=== PATIENT | male | born 1980 | race Caucasian/White ===

== ENCOUNTER 2016-10-29 17:39 | Emergency (ER) | payer SELFPAY ==
[~2016-10-29] VITALS: Ht 172.7 cm; Wt 82.0 kg
[2016-10-29] MEDS ORDERED: SOD CHLORIDE 0.9% 1,000 ML IV STA (17:57)
[2016-10-29 18:11] VITALS: Ht 172.7 cm; Wt 82.0 kg
[2016-10-29 18:16] LABS: ADD SCAN DIFF NO; BASOPHIL # 0.1 10^3/ul (0.0-0.1); BASOPHILS % 0.5 % (0.0-2.0); EOSINOPHILS # 0.2 10^3/ul (0.0-0.5); EOSINOPHILS % 1.6 % (0.0-7.0); HEMATOCRIT 42.5 % (42.0-52.0); HEMOGLOBIN 14.9 g/dl (14.0-18.0); LYMPHOCYTES % 29.1 % (15.0-51.0); MEAN CORPUSCULAR HEMOGLOBIN 31.2 pg (29.0-33.0); MEAN CORPUSCULAR HGB CONC 35.1 g/dl (32.0-37.0); MEAN CORPUSCULAR VOLUME 89.1 fl (82.0-101.0); MEAN PLATELET VOLUME 9.9 fl (7.4-10.4); MONOCYTE # 0.8 10^3/ul (0.3-0.9); MONOCYTES % 7.8 % (0.0-11.0); NEUTROPHIL # 6.1 10^3/ul (1.6-7.5); NEUTROPHILS % 59.6 % (39.0-77.0); PLATELET COUNT 262 10^3/UL (140-415); RED BLOOD COUNT 4.77 10^6/ul (4.70-6.10); RED CELL DISTRIBUTION WIDTH 12.2 % (11.5-14.5); WHITE BLOOD COUNT 10.3 10^3/ul (4.8-10.8)
[2016-10-29 18:38] LABS: ALANINE AMINOTRANSFERASE 65 IU/L (13-69); ALBUMIN 4.8 g/dl (3.3-4.9); ALKALINE PHOSPHATASE 84 IU/L (42-121); ANION GAP 18 (8-16); ASPARTATE AMINO TRANSFERASE 36 IU/L (15-46); BILIRUBIN,INDIRECT 0.2 mg/dl (0-1.1); BILIRUBIN,TOTAL 0.2 mg/dl (0.2-1.3); BLOOD UREA NITROGEN 17 mg/dl (7-20); CALCIUM 9.5 mg/dl (8.4-10.2); CARBON DIOXIDE 20 mmol/L (21-31); CHLORIDE 107 mmol/L (97-110); CREATINE KINASE 72 IU/L (23-200); CREATININE 0.79 mg/dl (0.61-1.24); GLUCOSE 98 mg/dl (70-220); POTASSIUM 4.1 mmol/L (3.5-5.1); SODIUM 141 mmol/L (135-144)
[2016-10-29 18:53] LABS: CK-MB 0.28 ng/ml (0.0-2.4); TROPONIN-I < 0.012 ng/ml (0.00-0.12)
--- NOTE | 2016-10-29 18:54 | RADRPT ---
PROCEDURE: XR Chest. CLINICAL INDICATION: Chest pain TECHNIQUE: AP view of the chest was obtained. COMPARISON: None. FINDINGS: The cardiomediastinal silhouette is within normal limits. The lungs are clear. No pleural effusion or pneumothorax is identified. Visualized osseous structures appear intact. IMPRESSION: No evidence of active cardiopulmonary disease. RPTAT: GG .Sae Ahmadi MD, MD Date Time Electronically viewed and signed by .Sae Ahmadi MD, on 10/29/2016 18:54 .O/
--- NOTE | 2016-10-29 18:58 | ERD ---
ER Documentation Chief Complaint Date/Time DATE: 10/29/16 TIME: 18:56 Chief Complaint PT BIB by RA 81 for heat exhaustions and CP X 1 hour. HPI This 36-year-old male comes in complaining of chest pain and feeling very weak and dizzy. Been in the heat for prolonged period of time. He states that he is from [place] where it is much cold and is not used to this heat. He feels very thirsty. States that the dizziness as a lightheaded sensation. Chest pain is described as a substernal burning sensation. No radiation ROS All systems reviewed and are negative except as per history of present illness. Medications Home Meds No Active Prescriptions or Reported Meds Allergies Allergies: Coded Allergies: No Known Allergy (Unverified , 10/29/16) PMhx/Soc Medical and Surgical Hx: pt denies Medical Hx, pt denies Surgical Hx Anesthesia Reaction: No Hx Neurological Disorder: No Hx Respiratory Disorders: No Hx Cardiac Disorders: No Hx Psychiatric Problems: No Hx Miscellaneous Medical Probl: No Hx Alcohol Use: No Hx Substance Use: No Hx Tobacco Use: No Smoking Status: Never smoker Physical Exam Vitals Vital Signs Date Time Temp Pulse Resp B/P Pulse Ox O2 Delivery O2 Flow Rate FiO2 10/29/16 18:16 Nasal Cannula 2 10/29/16 18:11 98.6 97 14 134/87 97 Physical Exam Const: [] Head: Atraumatic Eyes: Normal Conjunctiva ENT: Normal External Ears, Nose and Mouth. Neck: Full range of motion..~ No meningismus. Resp: Clear to auscultation bilaterally Cardio: Regular rate and rhythm, no murmurs Abd: Soft, non tender, non distended. Normal bowel sounds Skin: No petechiae or rashes Back: No midline or flank tenderness Ext: No cyanosis, or edema Neur: Awake and alert Psych: Normal Mood and Affect Result Diagram: 10/29/16 1757 10/29/16 1820 Results 24 hrs Laboratory Tests Test 10/29/16 17:57 10/29/16 18:20 White Blood Count 10.310^3/ul Red Blood Count 4.7710^6/ul Hemoglobin 14.9g/dl Hematocrit 42.5% Mean Corpuscular Volume 89.1fl Mean Corpuscular Hemoglobin 31.2pg Mean Corpuscular Hemoglobin Concent 35.1g/dl Red Cell Distribution Width 12.2% Platelet Count 43342^3/UL Mean Platelet Volume 9.9fl Neutrophils % 59.6% Lymphocytes % 29.1% Monocytes % 7.8% Eosinophils % 1.6% Basophils % 0.5% Nucleated Red Blood Cells % 0.0/100WBC Neutrophils # 6.110^3/ul Lymphocytes # 3.010^3/ul Monocytes # 0.810^3/ul Eosinophils # 0.210^3/ul Basophils # 0.110^3/ul Nucleated Red Blood Cells # 0.010^3/ul Sodium Level 141mmol/L Potassium Level 4.1mmol/L Chloride Level 107mmol/L Carbon Dioxide Level 20mmol/L Anion Gap 18 Blood Urea Nitrogen 17mg/dl Creatinine 0.79mg/dl Glucose Level 98mg/dl Calcium Level 9.5mg/dl Total Bilirubin 0.2mg/dl Direct Bilirubin 0.00mg/dl Indirect Bilirubin 0.2mg/dl Aspartate Amino Transf (AST/SGOT) 36IU/L Alanine Aminotransferase (ALT/SGPT) 65IU/L Alkaline Phosphatase 84IU/L Creatine Kinase 72IU/L Creatine Kinase Index 0.4 Creatinine Kinase MB (Mass) 0.28ng/ml Troponin I < 0.012ng/ml Total Protein 8.0g/dl Albumin 4.8g/dl Globulin 3.20g/dl Albumin/Globulin Ratio 1.50 Lipase 107U/L Current Medications Medications (Trade) Dose Ordered Sig/Quentin Route PRN Reason Start Time Stop Time Status Last Admin Dose Admin Sodium Chloride (NS) 1,000 ml @ 1,000 mls/hr Q1H STAT IV 10/29/16 17:57 10/29/16 18:56 10/29/16 18:10 Procedures/MDM EKG interpretation: Sinus tachycardia rate of 120, normal axis, no ST or T-wave changes concerning for acute ischemia, normal intervals. ANIL VEGA DO Oct 29, 2016 18:58
[2016-10-29] MEDS ORDERED: LIDOCAINE/MYLANTA 40 ML BTL PO ONE (19:00)
[2016-10-29] MEDS ORDERED: KETOROLAC 30 MG INJ IV STA (19:34)
[2016-10-29 19:59] VITALS: BP 130/84; PULSE 88; RESP 16; TEMP 98.4
== END 2016-10-29 20:01 | disposition home or self-care (01) ==
LOC: EDBD 17:39 → E/R 17:39
DX: R07.9 Chest pain, unspecified (principal); R53.1 Weakness; R42 Dizziness and giddiness
CPT/HCPCS: 71010; 80053; 82550; 82553; 83690; 84484; 85025; 93005; J7030; 96360; 96361